=== PATIENT | female | born 1950 | race Caucasian/White ===

== ENCOUNTER 2022-10-05 11:50 | Emergency (ER) | payer MEDICARE ==
[~2022-10-05] VITALS: Ht 160 cm; Wt 99.3 kg
[2022-10-05] MEDS ORDERED: OMEP-173 (12:00)
[2022-10-05] MEDS ORDERED: LYRI75CA PO (12:00)
[2022-10-05] MEDS ORDERED: LISI40TA4 (12:00)
[2022-10-05] MEDS ORDERED: AMLO2.5T3 (12:00)
[2022-10-05] MEDS ORDERED: GLIP5TAB20 (12:00)
[2022-10-05 15:10] VITALS: BP 157/70; TEMP 98; O2SAT 96
== END 2022-10-05 15:19 | disposition home or self-care (01) ==
LOC: M ED 11:50
DX: M72.2 Plantar fascial fibromatosis (principal); E11.9 Type 2 diabetes mellitus without complications; I10 Essential (primary) hypertension; Z79.84 Long term (current) use of oral hypoglycemic drugs; Z79.899 Other long term (current) drug therapy